=== PATIENT | female | born 1975 | race African-American/Black ===

== ENCOUNTER 2017-03-23 16:29 | Inpatient (IN) | payer OTHER ==
[~2017-03-23] VITALS: Ht 162.6 cm; Wt 86.0 kg
--- NOTE | 2017-03-23 16:43 | NUR ---
PT C/O BILATERAL LOWER QUADRANT PAIN THAT BEGAN 2 DAYS AGO. PT ALSO STATES "SWELLING AND PAIN" TO HER LEFT UPPER LEG. PT ALERT AND AWAKE, BREATHING EVEN AND UNLABORED. COMFORT MEASURES IN PLACED, CALL LIGHT PLACED WITHIN REACH. PT IN BED WAITING TO BE SEEN BY ER MD. AT BEDSIDE.
--- NOTE | 2017-03-23 16:46 | NUR ---
UNABLE TO GIVE URINE SAMPLE AT THIS TIME.
--- NOTE | 2017-03-23 17:13 | NUR ---
DR WADE AT BEDSIDE FOR MSE.
--- NOTE | 2017-03-23 17:38 | NUR ---
DR WADE AT BEDSIDE DISCUSSING PLAN OF CARE
--- NOTE | 2017-03-23 18:49 | NUR ---
PT PICKED UP BY CT SCAN VIA GURNEY. NO DISTRESS NOTED AT THIS TIME.
--- NOTE | 2017-03-23 19:13 | NUR ---
CHANGE OF SHIFT REPORT GIVEN TO VEDA CHRISTIAN TO CONTINUE CARE.
--- NOTE | 2017-03-23 19:28 | NUR ---
PT RETURNED FROM CT WITHOUT INCIDENCE, PT STATES PAIN IS NOW 8/10 DUE TO MOVING AROUND IN CT. WILL INFORM DR WADE
--- NOTE | 2017-03-23 20:20 | NUR ---
DR WADE AT BEDSIDE TO DISCUSS PLAN OF CARE WITH PT AND POSSIBLE TRANSFER.
[2017-03-23] MEDS ORDERED: HYDROCHLOROTH12.5 M2 PO (21:15)
[2017-03-23] MEDS ORDERED: LISINOPRIL2.5 MG PO (21:15)
[2017-03-23] MEDS ORDERED: ATENOLOL25 MG PO (21:15)
[2017-03-23] MEDS ORDERED: ACID REDUCER75 MG PO (21:16)
--- NOTE | 2017-03-23 21:48 | NUR ---
PT MEDICATED PER MD ORDERS FOR PAIN OF 10/10, PT WILL BE TRANSFERED AFTER EATING DINNER.
--- NOTE | 2017-03-23 22:12 | NUR ---
REPORT GIVEN TO BRENNAN TO ASSUME CARE OF PT
[2017-03-23 22:30] VITALS: BP 151/76
[2017-03-23 22:33] LABS: CHOLESTEROL/HDL RATIO 5.5; MAGNESIUM 1.7 mg/dL (1.8-2.4); PHOSPHOROUS 4.2 mg/dL (2.5-4.9)
--- NOTE | 2017-03-23 22:34 | NUR ---
RECEIVED PT FROM ED VIA [facility]. ORIENTED PT TO ROOM AND SURROUNDINGS. IV NOTED TO LEFT HAND PATENT AND INTACT. TELE 19 PLACED ON PT READING NSR. INSTRUCTED PT ON THE USE OF CALL LIGHT FOR ASSISTANCE. ENDOSRED PT TO PRIMARY NURSE BRENNAN
--- NOTE | 2017-03-23 22:46 | NUR ---
STS HAVING BACK PAIN RADIATING TO LEFT BUTTOCK 9/10 ON PAIN SCALE, NORCO PO 1 TAB GIVEN. NOTED TOLERATED TO REGULAR DIET, DENIES NAUSEA AT THIS TIME. ASKED FOR MORE APPLE JUICE, JUICE PROVIDED. IVF NS AT 130ML/HR INFUSING WELL. SCD TO BLE INPLACED. CALL LIGHT PLACED WITHIN EASY REACH. SIDERAILS UP X2.
[2017-03-23 22:58] LABS: T3 TOTAL 1.36 ng/mL
[2017-03-23 23:32] LABS: FREE T4 1.5 ng/dL (0.76-1.46); FREE THYROXINE INDEX 5.1 ug/dL (1.4-4.5); T4(THYROXINE) 13.8 ug/dL (4.7-13.3)
[2017-03-24] MEDS ORDERED: PROAIR RES117 MCG/Ac IH (00:08)
[2017-03-24 01:34] VITALS: BP 151/76
--- NOTE | 2017-03-24 04:08 | NUR ---
REPORTS HAVING BACK PAIN 10/10 ON PAIN SCALE, MORPHINE 2MG IV GIVEN.
[2017-03-24 04:18] LABS: microscopic required? NO
[2017-03-24 04:53] LABS: UA SPECIFIC GRAVITY 1.015 (1.005-1.035); urine erythrocyte NEGATIVE (NEGATIVE)
[2017-03-24 05:00] LABS: AMPHETAMINE QUAL UR NONE DETECTED (NEG <=1000)
--- NOTE | 2017-03-24 05:10 | NUR ---
RESTING WITH EYES CLOSE. ABLE TO USE BSC, NOTED KT URINE COLORED URINE OUTPUT. URINE SPECIMEN SENT. MG RIDER GIVEN. IVF NS INFUSING WELL.
[2017-03-24 05:34] VITALS: BP 126/77
[2017-03-24 06:13] LABS: BASOPHIL % 0.2 % (0-2); PLATELET COUNT 332 x10^3mcL (130-400); RED CELL DISTRIBUTION WIDTH 12.3 % (11.5-14.5)
[2017-03-24 06:18] LABS: CALCIUM 9.1 mg/dL (8.5-10.1); CARBON DIOXIDE 27.1 mmol/L (21-32); CHLORIDE SERUM 102 mmol/L (98-107); CREATININE SERUM 0.9 mg/dL (0.6-1.0); GFR1 > 60 mL/min; GLUCOSE SERUM 158 mg/dL (74-106); MAGNESIUM 2.4 mg/dL (1.8-2.4); PHOSPHOROUS 2.8 mg/dL (2.5-4.9); POTASSIUM SERUM 4.2 mmol/L (3.5-5.1); SODIUM SERUM 140 mmol/L (136-145)
--- NOTE | 2017-03-24 08:00 | NUR ---
RECIEVED PATIENT ALERT AND ORIENTED TIMES FOUR. IV INTACT AND PATIENT HAS BEEN WITH SOME PAIN BUT REFUSED PAIN MEDICATION AT THIS TIME. PATIENT HAS CLEAR BREATH SOUNDS AND BOWEL SOUNDS ACTIVE. PATIENT HAS BEEN OOB AND TOELRATED FAIR. PER THE PATIENT SHE INJURED HERSELF AT WORK AND THE INSURANCE DENIED HER CLAIM. SHE HAS NOTED PRTRUSION OF THE L5, S1 AND WITH MODERATE SOEM NARROWING AND POSSIBLE COMPRESSION OF THE L1 AND S1 NERVE. NO SPONDILOSIS NOTED. PATIENT AH NTOE MILES IWTH OPIATES AND BENZODIAPINE IN THE URINE. APTIENT AHS ELEVATED LDL AND AT 134, PATIENT HAS WITH NEGATIVE CHEST XRAY. HISTORY OF HTN AND ASTHMA AND GERD NOTED. PATIENT HAS VITALS AT THIS TIME AT 97.1, 100, 18, 126/77,95% ON ROOM AIR. PATIENT HAS HAS LEFT SIDE PAIN AND LEFT LEG PAIN AND SWELLING REPORTED FOR ONE WEEK.
--- NOTE | 2017-03-24 09:00 | NUR ---
PATIENT SEEN BY THE INTERNS ND RESIDENT AND PLAN OF CARE DISCUSSED.
--- NOTE | 2017-03-24 10:00 | NUR ---
TOLERATED DIET AND NO COMPLAINTS OF PAIN AT THIS TIME. SHE REFUSED PAIN MEDICATION.
[2017-03-24 10:32] VITALS: BP 121/80
--- NOTE | 2017-03-24 13:22 | NUR ---
GAVE MORPHINE FOR PAIN AND PT TO GET PATIENT UP TO AMBULATE. WILL CONTINUE TO MONITOR FOR EFFECITVENESS.
--- NOTE | 2017-03-24 13:59 | NUR ---
P.T. NOTES RECEVIED P.T. EVAL ORDER, CHART REVIEWED, PER MATTHEW PT HAS NOT REQUESTED FOR ANT PAIN MEDS DURING HER SHIFT. UPON P.T. ARRIVAL PT REPORTS OF 03/11 SUBJ LBP, WITH PAIN RADIATING TO LT HIP, REQUESTED FOR PAIN MEDS AND P.T. TO COME BACK AT A LATER TIME. NRSG MADE AWARE. ZEFERINOE
[2017-03-24 14:06] VITALS: BP 151/92
--- NOTE | 2017-03-24 16:54 | NUR ---
PATIEN OOB TO THE COMODE AND LARGE LOOSE STOOL NOTED. PATIENT TOLERATED OOB WELL.
[2017-03-24 18:59] VITALS: BP 155/90
--- NOTE | 2017-03-24 19:27 | NUR ---
RICKI SANFORD WILL TRANSFER PATIENT.
--- NOTE | 2017-03-24 19:27 | NUR ---
PATIENT TO TRANSFER TO ROOM 202 A,TOILET NOT WORKING IN 208.CHARGE NURSE GILBERT MADE AWARE.
--- NOTE | 2017-03-24 19:45 | NUR ---
SHIFT REASSESSMENT DONE.PATIENT TO ROOM 202 A NOW VIA BED.DECLINE TO BE TRANSFERRED BY WHEELCHAIR,DISC PROBLEM.BREATHING EASY.NS AT 130 CC/ HOPUR.TELE 19 SR.SKIN INTACT.USES BSC ALSO,ASSIST.NEEDED.SAYS SHE HAS BACK APARICIO RADIATING TO L BUTTOCKS.HAD MSO4 AT 1830.CALL LITE IN REACH.
--- NOTE | 2017-03-25 00:18 | NUR ---
PATIENT RESTING QUIETLY AT THIS TIME,HAD PAIN MED AT 2130,PATIENT CALL LIGHT IN REACH.
--- NOTE | 2017-03-25 02:55 | NUR ---
GIVEN NORCO AT THIS TIME,MORPHINE IVP STILL UNVERIFIED,JUST GOT RENEWED.
--- NOTE | 2017-03-25 03:18 | NUR ---
MSO4 GOT VERIFIED AND WANTS IT NOW,BACK PAIN.
--- NOTE | 2017-03-25 05:09 | NUR ---
PATIENT VERY UNSTEADY ON HER FEET,ALMOST LIMPING.FALL PRECAUTION.NS AT 130 CC/ HOUR.IV SITE GOOD.QUIET AT THIS TIME,NO COMPLAINT.
--- NOTE | 2017-03-25 05:52 | NUR ---
I AND O MEASURED.NO DISTRESS THIS SHIFT.NS AT 100 CC/ HOUR.WILL CONTINUE PLAN OF CARE.CALL LIGHT IN REACH.
[2017-03-25 06:53] VITALS: BP 135/96
--- NOTE | 2017-03-25 08:00 | NUR ---
RECEIVED PATIENT ALERT AND ORDERED TIMES FOUR. PATIENT WITH DIMINISHED BREATH SOUNDS AND BOWEL SOUNDS ACTIVE. PATIENT WITH K PAD TO THE BACK AND WITH EDEMA TO THE LOWER EXTREMITES AND WITH SPASMING PAIN ON AND OFF. REQUESTED PAIN MEDICATIONS AND GAVE MORPHINE ORDERED. PATIENT NEEDS ASSIST OOB TO THE RESTROOM AND BACK. CHANO APARENTLY WAS INJURED AT WORK. SHE HAD BEEN LIFING A WHEELCHAIR. VITALS AT THIS TIME AT 97.7, 96, 18, 135/90, 94% ON ROOM AIR. NOTED OABS IS THE GLUOCOSE AT 158. PATIENT WAS ON DECADRON FOR PAIN AND CONTINUE DON NS AT 130CC PER HOUR. PATIEN AHS PROTRUSION OF THE L5-S1 AND HAS POSSIBLE COMPRESSION OF THE LEFT S1 BERNARDO AND NO SPONDILOSIS NOTED. PATIENT HAS HX OF HTN, ASTHMA AND GERD.
--- NOTE | 2017-03-25 09:30 | NUR ---
SEEN BY DR STEINER AND STAFF AND PLN OF CRE DISCUSSED. POSSIBLE DISCHARGE PLANNED FOR TODAY. SHE IS TO HAVE REHAB AND POSSIBLE SURGERY CONSULTATION IS RECOMENDED.
--- NOTE | 2017-03-25 09:33 | NUR ---
REQUESTED PAIN MEDICATION FOR PAIN AND GAVE MORPHINE ORDERED. PATIENT HAS PAIN TO THE LEFT LOWER BACK AND LEG. SHE WAS OOB BUT NEEDS ASSIST WITH TRANFERS AND STANDING. WILL CONTINUE TO MONITOR INDICATED,
[2017-03-25 10:10] VITALS: BP 139/80
--- NOTE | 2017-03-25 10:22 | NUR ---
MONICA COMPLAINED OF PAIN AND OFFERED NORCO ORDERED. WHEN ARRIVE BACK TO THEOROM THE AT BEDSIDE ASKED HOW MUCH IS THE DOES AND STATES IT WILL NOT DUE XXXX. THE PATIENT ASKED HOW MUCH THE IV DOSING WAS AND THE SATEST THE DILAUDID SHE RECIEVED IN ER WAS BETTER AND KNOCKED OUT THE PAIN. ADVISED THAT THE PAINMEDICATGION SHAVE ISSUES WELL IN THE SYSTEM INCLUDING STOMACH PROBLEMS AND LIVER AND KIDNEY DAMAGE AND THAT THE DOCTORS PREFER TO BE CONSERVATIVE WITH THIER USE. WILL MONITOR FOR EFFECTIVENESS OF THE MEDICATION GIVEN.
[2017-03-25 11:30] VITALS: BP 139/80
[2017-03-25 11:38] VITALS: BP 139/80
[2017-03-25] MEDS ORDERED: NORCO1 TA2 PO (12:14)
[2017-03-25] MEDS ORDERED: CYCLOBENZAPRINE5 MG PO (12:15)
[2017-03-25] MEDS ORDERED: TRAZODONE50 M1 PO (12:16)
[2017-03-25] MEDS ORDERED: MELOXICAM7.5 M1 PO (12:19)
--- NOTE | 2017-03-25 13:33 | NUR ---
GAVE DECADRON AND PATIENT IS FOR DISDCHAGBE HOME TODAY. PATIENT HAS BEEN OOB AND WITH A LOT OF PAIN OUT OF BED. SHE REQUESTED PAIN MEDICATION AND GAVE MORPHINE AT 1220 AND SEEM ONLY MILDLY EFFECTIVE AT THIS ZINA. PATIENT HAS BEEN AVOIDING PRESSURE ON THE LEFT FOOT OR HIP MAKING HER GAIT LUMBERING AT BEST AND UNSTEADY. ENCOURAGED THE PATIENT TO ATTEMPT TO STAND UP AND TO REDISTRIBUTE THE WEIGHT FOR SAFETY AND POSTURE. PATIENT HAS BEEN GUARDING HER LEFT SIDE. HE SIGNIFICANT OTHER IS AWARE OF DISCHARGE PLAN BUT HAS SINCE LEFT. PATEINT WANTS A BACK BRACE AND A WHEELCHAIR BUT NO ORDERS HAVE BEEN RECEIVED AND SHE HAS A REQUEST PRIOR AND WAS PENDING APPROVAL. ESTEFANIA ZARAGOZA THERE IS NO INSTOCK BACK BRACE. HOPING THIS MAY GIVE HER SOME SUPPORT. OOB AT THIS TIME FOR TRAINING ON THE STAIRS WITH PHYSICAL THERAPY.
--- NOTE | 2017-03-25 14:06 | NUR ---
BACK IN BED AND TOLERTE THE PHYSICAL THERAPY FINE. PLAN IS FOR DISCHARFGE HOME TODAY. PRESCRIPTION FOR NORCO HAS BEEN RECEIVED. PATEINT IS TO FOLLOW UP [facility] AND [facility]THO SURGEON POST DISCHARGE.
[2017-03-25 14:10] VITALS: BP 171/99
[2017-03-25 17:50] VITALS: BP 154/88
--- NOTE | 2017-03-25 19:01 | NUR ---
DIACHARGE TO HOME ORDERED. PATIENT GIVEN PAPERWORK AND TO FOLLOW UP WITH RECOMENDED PHYSICIAN FOR REFERAL FOR SURGERY AND THERAPY. PATIENT TO HAVE WHEELCHAIR SENT TO THE HOME. THE BRACE WAS NOT INDICATED PER THE INSURANCE.
== END 2017-03-25 19:17 | disposition home or self-care (01) | DRG 342 ==
LOC: ED 16:29 → DU 20:39
PROVIDERS: ADMIT Family Medicine
DX: S33.39XA Dislocation of other parts of lumbar spine and pelvis, initial encounter (principal); E83.42 Hypomagnesemia; I10 Essential (primary) hypertension; M54.17 Radiculopathy, lumbosacral region; J45.909 Unspecified asthma, uncomplicated; E78.5 Hyperlipidemia, unspecified; Z68.32 Body mass index [BMI] 32.0-32.9, adult; X50.0XXA Overexertion from strenuous movement or load, initial encounter; Y92.9 Unspecified place or not applicable; Y99.0 Civilian activity done for income or pay
CPT/HCPCS: 83880; 84439; 94150; 97110-GP; 97116-GP; 97530-GP; J1100; J1885; J2270; J2405; J3010; J3475; J3490; J7030; Q0092

== ENCOUNTER 2017-04-27 15:43 | Emergency (ER) | payer OTHER ==
[~2017-04-27] VITALS: Ht 177.8 cm; Wt 81.6 kg
[~2017-04-27 15:43] MED LIST: ACID REDUCER75 MG PO; ATENOLOL25 MG PO; CYCLOBENZAPRINE5 MG PO; HYDROCHLOROTH12.5 M2 PO; LISINOPRIL2.5 MG PO; MELOXICAM7.5 M1 PO; NORCO1 TA2 PO; PROAIR RES117 MCG/Ac IH; TRAZODONE50 M1 PO
[2017-04-27 18:42] VITALS: BP 132/70
== END 2017-04-27 18:42 | disposition home or self-care (01) ==
LOC: ED 15:43
DX: M51.27 Other intervertebral disc displacement, lumbosacral region (principal); I10 Essential (primary) hypertension; Z79.899 Other long term (current) drug therapy
CPT/HCPCS: J2405; J3010

== ENCOUNTER 2017-07-10 01:31 | Emergency (ER) | payer OTHER ==
[2017-07-10 03:23] VITALS: BP 158/92
== END 2017-07-10 03:23 | disposition home or self-care (01) ==
LOC: ED 01:31
DX: J06.9 Acute upper respiratory infection, unspecified (principal); N39.0 Urinary tract infection, site not specified; I10 Essential (primary) hypertension; K21.9 Gastro-esophageal reflux disease without esophagitis
CPT/HCPCS: Q0092